=== PATIENT | female | born 1960 | race Caucasian/White ===

== ENCOUNTER → 2018-03-21 | Outpatient (CLI) | payer MEDICAID ==
[2018-03-21 14:17] LABS: BASO # 0.1 10^3/uL (0.0-0.2); BASO % 0.7 % (0.0-1.0); EOS # 0.1 10^3/uL (0.0-0.50); EOS % 1.2 % (0.0-3.0); HEMATOCRIT 46.1 % (36.0-47.0); HEMOGLOBIN 15.5 g/dl (12.0-15.5); IMMATURE GRANULOCYTE % 0.3 % (0-3.0); LYMPH # 2.5 10^3/uL (1.5-4.5); LYMPH % 34.3 % (24.0-44.0); MEAN CORPUSCULAR HEMOGLOBIN 31.4 pg (27.0-33.0); MEAN CORPUSCULAR HGB CONC 33.6 g/dl (32.0-36.5); MEAN CORPUSCULAR VOLUME 93.5 fl (80.0-96.0); MONO # 0.5 10^3/uL (0.0-0.8); MONO % 7.3 % (0.0-5.0); NEUTROPHILS # 4.2 10^3/uL (1.8-7.7); NEUTROPHILS % 56.2 % (36.0-66.0); PLATELET COUNT, AUTOMATED 259 10^3/uL (150-450); RED BLOOD COUNT 4.93 10^6/uL (4.00-5.40); RED CELL DISTRIBUTION WIDTH 12.9 % (11.5-14.5); WHITE BLOOD COUNT 7.4 10^3/uL (4.0-10.0)
[2018-03-21 14:22] LABS: ALBUMIN/GLOBULIN RATIO 1.25 (1.00-1.93); ALKALINE PHOSPHATASE 104 U/L (45-117); ALT/SGPT 26 U/L (12-78); ANION GAP 8 MEQ/L (8-16); AST/SGOT 17 U/L (7-37); BILIRUBIN,TOTAL 0.5 MG/DL (0.2-1.0); BLOOD UREA NITROGEN 13 MG/DL (7-18); CALCIUM LEVEL 9.2 MG/DL (8.5-10.1); CARBON DIOXIDE LEVEL 27 MEQ/L (21-32); CHLORIDE LEVEL 106 MEQ/L (98-107); CHOLESTEROL LEVEL 164 MG/DL (<200); CHOLESTEROL RISK RATIO 3.416 (<5); CREATININE FOR GFR 0.83 MG/DL (0.55-1.30); FREE T4 0.99 NG/DL (0.76-1.46); GLOMERULAR FILTRATION RATE > 60.0 (>51); GLUCOSE, FASTING 87 MG/DL (70-100); HDL CHOLESTEROL 48 MG/DL (>40); LDL CHOLESTEROL 89 MG/DL (<100); NON-HDL-C 116 MG/DL; POTASSIUM SERUM 4.7 MEQ/L (3.5-5.1); SODIUM LEVEL 141 MEQ/L (136-145); TOTAL 25(OH) VITAMIN D 36.1 NG/ML (30.0-100.0); TOTAL PROTEIN 7.2 GM/DL (6.4-8.2); TRIGLYCERIDES LEVEL 133 MG/DL (<150)
== END ==
LOC: M WUC 08:46
DX: R53.83 Other fatigue (principal); E78.2 Mixed hyperlipidemia; I10 Essential (primary) hypertension
CPT/HCPCS: 84443

== ENCOUNTER → 2018-11-12 | Outpatient (CLI) | payer OTHER ==
[2018-11-12 12:59] LABS: BASO % 0.4 % (0.0-1.0); EOS # 0.3 10^3/uL (0.0-0.50); EOS % 3.1 % (0.0-3.0); HEMATOCRIT 48.2 % (36.0-47.0); HEMOGLOBIN 16.1 g/dl (12.0-15.5); LYMPH # 2.4 10^3/uL (1.5-4.5); LYMPH % 24.3 % (24.0-44.0); MEAN CORPUSCULAR HGB CONC 33.4 g/dl (32.0-36.5); MEAN CORPUSCULAR VOLUME 92.9 fl (80.0-96.0); MONO # 0.7 10^3/uL (0.0-0.8); MONO % 7.1 % (0.0-5.0); NEUTROPHILS # 6.5 10^3/uL (1.8-7.7); NEUTROPHILS % 64.7 % (36.0-66.0); PLATELET COUNT, AUTOMATED 255 10^3/uL (150-450); RED BLOOD COUNT 5.19 10^6/uL (4.00-5.40)
[2018-11-12 13:29] LABS: ALT/SGPT 23 U/L (12-78); BILIRUBIN,TOTAL 0.4 MG/DL (0.2-1.0); BLOOD UREA NITROGEN 11 MG/DL (7-18); CALCIUM LEVEL 9.5 MG/DL (8.5-10.1); CARBON DIOXIDE LEVEL 27 MEQ/L (21-32); CHLORIDE LEVEL 104 MEQ/L (98-107); CHOLESTEROL LEVEL 161 MG/DL (<200); CHOLESTEROL RISK RATIO 3.037 (<5); CREATININE FOR GFR 0.64 MG/DL (0.55-1.30); GLOMERULAR FILTRATION RATE > 60.0 (>51); GLUCOSE, FASTING 101 MG/DL (70-100); HDL CHOLESTEROL 53 MG/DL (>40); LDL CHOLESTEROL 81 MG/DL (<100); NON-HDL-C 108 MG/DL; POTASSIUM SERUM 4.3 MEQ/L (3.5-5.1); SODIUM LEVEL 136 MEQ/L (136-145); TOTAL PROTEIN 7.5 GM/DL (6.4-8.2); TRIGLYCERIDES LEVEL 134 MG/DL (<150)
== END ==
LOC: M WUC 08:22
PROVIDERS: ATTEND Physician Assistant Medical
DX: R53.83 Other fatigue (principal); I10 Essential (primary) hypertension; E78.2 Mixed hyperlipidemia

== ENCOUNTER → 2019-06-05 | Outpatient (CLI) | payer BC ==
[~2019-06-05] MED LIST: ATOR40TA75 PO; LOSA50TA5 PO
--- NOTE | 2019-06-05 14:43 | REP ---
Digital diagnostic bilateral mammography with CAD, 3-D tomography, and focused right breast sonography: History: The patient reports finding a lump in the right breast the size of a walnut 1 week ago. The patient is status post augmentation. No comparison images are available at this juncture. Mammographic findings: A skin marker is affixed to the skin at the site of the palpable lump and routine as well as magnified focal spot diagnostic images are acquired. Routine implant included and implant displaced views of both breasts are obtained as well. Implant margins are smooth bilaterally. Retropectoral silicone implants appear to be present. The breast parenchyma generally is heterogeneously dense in a pattern which can inhibit the sensitivity of mammography. The left breast is mammographically unremarkable. On the right, at the site of the palpable lump, however, there is a spiculated, multilobulated soft tissue mass 3.1 cm in greatest diameter. This is confirmed on diagnostic images and is felt to be suspicious. The remainder of the right breast parenchyma is unremarkable. No definite skin change. No microcalcification. Sonographic findings: Focused right breast scanning at the site of the palpable lump at approximate 8 o'clock demonstrates a spiculated irregular very hypoechoic mass measuring 3.3 x 2.7 x 1.8 cm located 4.2 cm from the nipple. The lesion has its long axis parallel to the skin. Its margins are annular and irregular. Impression: BIRADS 5: BI-RADS/ACR category 5 mammogram. Highly Suggestive of Malignancy - appropriate action should be taken. BIRADS category 5 highly suspicious right breast imaging. The palpable lump corresponds to a 3.3 cm spiculated soft tissue mass. Ultrasound guided needle biopsy of the mass is recommended. This mammogram was interpreted with the aid of an FDA-approved computer-aided detection system. The patient states that she/he has not had a clinical breast exam in over a year. This patient's estimated Tyrer-Cuzick lifetime risk assessment for the breast cancer is 7.0 %. The patient letter being requested is m4 dense . Electronically Signed by Edi Ronquillo MD 06/05/2019 06:30 P
== END ==
LOC: M RAD 10:57
PROVIDERS: ATTEND Physician Assistant Medical
DX: N63.10 Unspecified lump in the right breast, unspecified quadrant (principal)
CPT/HCPCS: 76642; 77066; G0279

== ENCOUNTER → 2019-06-09 | Outpatient (CLI) | payer BC ==
[~2019-06-09] MED LIST changes: +LIDOCAINE 1% MDV 20ML VIAL As Ordered ONE
[2019-06-09 13:33] VITALS: BP 174/96
--- NOTE | 2019-06-09 15:18 | REP ---
DIGITAL DIAGNOSTIC UNILATERAL RIGHT BREAST MAMMOGRAPHY WITH CAD: TWO VIEWS. HISTORY: Marker clip placement views. The patient status post ultrasound-guided needle biopsy of right breast mass. Comparison mammography, June 05, 2019. MAMMOGRAPHIC FINDINGS: Craniocaudal and true mediolateral views of the right breast demonstrate the sonographically-placed needle biopsy marker clip centrally located in the irregular mass in the right breast inferolaterally. IMPRESSION: Marker clip in good position. This mammogram was interpreted with the aid of an FDA-approved computer-aided detection system. Electronically Signed by dEi Ronquillo MD 06/09/2019 06:56 P
--- NOTE | 2019-06-09 19:06 | REP ---
ULTRASOUND GUIDED RIGHT BREAST BIOPSY The procedure was performed under the direct supervision of Dr. Ronquillo The patient has a history of a spiculated irregular very hypoechoic mass measuring 3.3 x 2.7 x 1.8 cm in the 8 o'clock position of the right breast seen on a previous ultrasound dated 06/05/2019. The risks and benefits of the procedure were explained to the patient and informed consent was obtained. The right breast nodule was localized using ultrasound guidance. The skin was prepped and draped in a sterile fashion. 1% Xylocaine was used as a local anesthetic. Using ultrasound guidance a 14 gauge coaxial needle biopsy system was inserted and six core biopsy samples were obtained. A marker clip was placed at the biopsy site. The patient tolerated the procedure well and there were no immediate complications. After the appropriate amount of monitored convalescence the patient was discharged from the department. Electronically Signed by FLEX Shaw 06/09/2019 04:15 P Electronically Signed by Edi Ronquillo MD 06/09/2019 06:56 P
== END ==
LOC: M IRPRO 11:47
PROVIDERS: ATTEND Physician Assistant Medical
DX: C50.911 Malignant neoplasm of unspecified site of right female breast (principal)
CPT/HCPCS: 19083; 77065; 88305; G0279

== ENCOUNTER → 2019-07-01 | Outpatient (CLI) | payer BC ==
[~2019-07-01] MED LIST changes: -LIDOCAINE 1% MDV 20ML VIAL As Ordered ONE
== END ==
LOC: M PLALAB 08:24
PROVIDERS: ATTEND Surgery
DX: C50.511 Malignant neoplasm of lower-outer quadrant of right female breast (principal)

== ENCOUNTER → 2019-07-01 | Outpatient (CLI) | payer BC ==
[~2019-07-01] MED LIST changes: +PROHANCE 279.3MG/ML 15ML VIAL (A9576) As Ordered ONE; +PROHANCE 279.3MG/ML 5ML VIAL (A9576) As Ordered ONE
--- NOTE | 2019-07-01 11:04 | REP ---
PA and lateral chest: There are no comparisons. The lung ferrer are clear. The cardiac size is normal. The alexi, mediastinum, and skeletal structures are unremarkable. Impression: Negative PA and lateral chest. Electronically Signed by Wilton Matute MD 07/01/2019 10:56 A
--- NOTE | 2019-07-01 14:29 | REP ---
Bilateral breast MRI study without and with IV gadolinium: History: Malignant neoplasm right breast. The patient status post ultrasound-guided needle biopsy procedure June 09, 2019. Comparison mammography June 09, 2019. Technique: Three Melly MRI imaging was performed with a dedicated breast coil. Axial, coronal, and sagittal T1 and T2-weighted scans were obtained with and without fat saturation in the usual fashion. The study includes dynamically acquired post gadolinium enhanced imaging subtraction imaging. Maximal intensity projection and multiplanar re-formation imaging is included as well. The study was interpreted with the aid of VeryLastRoomD, an FDA approved computer-aided detection (CAD) software program, on a dedicated breast MRI work station. The gadolinium enhancement dose is 16 mL of intravenous ProHance. Findings: There are intact bilateral subpectoral silicone augmentation implants. There is no evidence of breast cystic change or enlarged lymph node in either axilla. The biopsy-proven malignant mass in the right breast is seen. This demonstrates irregular margins spiculation and heterogeneous enhancement. It is located in the inferolateral quadrant of the right breast middle third. It measures 3.4 x 3.0 x 2.2 cm. A needle biopsy marker clip is seen within this malignant mass. This demonstrates a heterogeneous mixed pattern of contrast kinetics with predominately plateau with and/or washout characteristics. There is hyperemia with prominent vasculature in the right breast associated with this lesion. There is no other abnormal morphologic change in either breast on pre and postcontrast high-resolution T1 and T2-weighted scans. No other suspicious focus of enhancement and/or washout is seen on dynamically acquired study in either breast. Impression: BIRADS category 6 known right breast malignancy. 3.4 cm mass in the inferolateral quadrant of the right breast. No other suspicious abnormality. Bilateral augmentation implants. Electronically Signed by Edi Ronquillo MD 07/01/2019 06:56 P
== END ==
LOC: M RAD 08:45
PROVIDERS: ATTEND Physician Assistant Medical
DX: Z01.818 Encounter for other preprocedural examination (principal); C50.911 Malignant neoplasm of unspecified site of right female breast; Z98.82 Breast implant status
CPT/HCPCS: 71046; A9576; C8908

== ENCOUNTER → 2019-07-01 | Outpatient (CLI) | payer BC ==
[~2019-07-01] MED LIST changes: -PROHANCE 279.3MG/ML 15ML VIAL (A9576) As Ordered ONE; -PROHANCE 279.3MG/ML 5ML VIAL (A9576) As Ordered ONE
--- NOTE | 2019-07-02 05:06 | REP ---
Clinical: Breast cancer. Technique: Real time garza scale and color evaluation of the right axillary region with linear high frequency transducer. Findings: Axillary lymph nodes are identified measuring up to 21 x 5 x 6 mm, 12 x 7 x 12 mm, and 7 x 8 x 11 mm. Impression: Few mildly prominent right axillary lymph nodes.
== END ==
LOC: M WHC 07:58
PROVIDERS: ATTEND Surgery
DX: C50.511 Malignant neoplasm of lower-outer quadrant of right female breast (principal); R59.0 Localized enlarged lymph nodes

== ENCOUNTER → 2019-07-11 | Outpatient (CLI) | payer BC ==
[~2019-07-11] MED LIST changes: +BUPR15TASR PO
--- NOTE | 2019-07-12 10:57 | MEDONC ---
MEDICAL ONCOLOGY OFFICE VISIT: DATE: 07/11/2019 Mrs. Rose is a 58-year-old woman presented with a palpable lump in the right breast. She felt the mass in early May. She underwent bilateral mammography and right breast ultrasound on June 05, 2019. Mammogram showed retropectoral silicone implant bilaterally. The breast parenchyma appeared heterogeneously dense. Left breast is mammographically unremarkable. The right breast at the site of the palpable lump, there is a spiculated multilobulated soft tissue mass 3.1 cm in greatest dimension. Ultrasound of the right breast showed the spiculated irregular very hyper or hypoechoic mass measuring 3.3 x 2.7 x 1.8 cm located at 8-o'clock, 4.2 cm from the nipple. Ultrasound guided biopsy was done on June 09, 2019, pathology showed invasive ductal carcinoma, grade III, ER positive 20%, MA negative, HER2 negative. PAST MEDICAL HISTORY: Significant for COPD, hypertension, hyperlipidemia. PAST SURGICAL HISTORY: Includes tonsillectomy, wisdom tooth extractions, carpal tunnel release, tubal ligation and breast implant 10 years ago. CURRENT MEDICATIONS: - atorvastatin 40 mg once daily - ibuprofen 600 mg p.o. - losartan - potassium/HCTZ 50/12/5 mg one orally ALLERGIES: No known drug allergies. OB-LOAN ASSISTANT HISTORY: Menarche at 13 years of age. She is 3, para 3, LMP was 10 years ago. FAMILY HISTORY: Father COPD, hypertension, brain aneurysm, and stroke. Mother hypertension, heart attack. There is no family history of cancer. SOCIAL HISTORY: She is a smoker one pack a day. No alcohol abuse. REVIEW OF SYSTEMS: General and constitutional: She denies fever, chills, recent weight changes or fatigue. HEENT: Denies visual problems. Respiratory/pulmonary: Denies shortness of breath, wheeze. Cardiovascular: Denies palpitations, chest pain. Gastrointestinal: Denies nausea, vomiting, abdominal pain, diarrhea or constipation. Genitourinary: Denies urinary frequency, dysuria or hematuria. Musculoskeletal: Denies any bone pain, arthritis. Psychiatric and emotional: Denies anxiety or depression. ECOG performance status: 0. PHYSICAL EXAMINATION: General: Examination revealed well-developed and nourished female who does not appear to be in apparent distress. Patient was alert, oriented. Vital signs: Temperature 98.8, pulse 85, respirations 18, blood pressure 125/80, oxygen saturation is 94% in room air. HEENT: Normocephalic, atraumatic. Neck: Supple. There are no palpable lymphadenopathies in the neck, axilla bilaterally. Breast exam: Both breasts are same in size. There is a lump felt in the lateral side of the right breast, moderate in consistency and slightly tender on palpation. Respiratory: Clear to auscultation. Abdomen: Soft, nontender, nondistended without any palpable mass or organomegaly. Rectal exam: Not performed. Skin: There are no skin lesions. Extremities: No swelling, cyanosis. Neurological: Strength and sensation grossly intact. Psychiatric: Mood and affect appropriate. PATHOLOGICAL FINDINGS: As mentioned in HPI. RADIOLOGICAL FINDINGS: As mentioned in HPI. ICD 10 code: D50.511 STAGING: Clinical stage T2N0M0, ER positive 20%, MA negative, HER2 negative. ASSESSMENT AND RECOMMENDATIONS: Mrs. Rose is a 58-year-old woman presented with a palpable lump in the right breast. She had a mammography and ultrasound which showed a spiculated mass in the right breast corresponding to palpable abnormality. Ultrasound guided biopsy was performed on June 09, 2019 which showed invasive ductal carcinoma, grade III, ER 20% positive, MA negative, HER2 negative. I discussed the nature of the disease and treatment options. She is scheduled for surgery and adjuvant treatment will depends on surgical findings. Based on molecular findings , she is mostlikely a candidate for chemotherapy unless Oncotype DX, if it is recommended and shows low recurrence score.. In cse she is candidate for chemotherappy, radiation therapy will follow at the completion of chemotherapy. I have discussed procedures and possible side effects associated with the radiation therapy and I have given her chance of questions and concerns , they were answered to her satisfaction. DD: Cyn Pressley MD 07/11/2019 02:46 P DT: kellie 07/12/2019 10:04 A CC: HERB
== END ==
LOC: M ONCR 13:55
PROVIDERS: ATTEND Radiology Radiation Oncology
DX: C50.911 Malignant neoplasm of unspecified site of right female breast (principal)

== ENCOUNTER 2019-08-05 06:33 | Observation (INO) | payer BC ==
[2019-08-05] VITALS (7 sets, daily range): BP systolic 132–156; BP diastolic 68–81; O2SAT 96
[~2019-08-05] VITALS: Ht 167.6 cm; Wt 83.9 kg
[~2019-08-05 06:33] MED LIST changes: +HEPARIN SOD (PORCINE) 5000UNITS/ML VIAL (J1644 PER 1000UNITS) SQ ONE; +LIDOCAINE 5% (LIDODERM) PATCH TD ONE; +LR 1,000 ML IV ONE; +ceFAZolin SOD 2 GM in IV 1 EA IV ONE
[2019-08-05] MEDS ORDERED: dexameTHASONE 4 MG/ML 1ML VIAL (J1100 PER 1MG) As Ordered ONE (08:52)
[2019-08-05] MEDS ORDERED: ROCURONIUM BROMIDE 50 MG/5 ML VIAL As Ordered ONE ×2 (08:52→14:16)
[2019-08-05] MEDS ORDERED: MIDAZOLAM INJ 2MG/2ML VIAL (J2250 PER 1MG) As Ordered ONE (08:52)
[2019-08-05] MEDS ORDERED: ONDANSETRON 4MG/2ML VIAL As Ordered ONE (08:52)
[2019-08-05] MEDS ORDERED: LIDOCAINE 2% 100MG/5ML SDV (FOR ANES.) As Ordered ONE (08:52)
[2019-08-05] MEDS ORDERED: fentaNYL 250 MCG/5 ML INJECTION (J3010) As Ordered ONE (08:52)
[2019-08-05] MEDS ORDERED: propofoL 200 MG/20 ML VIAL As Ordered ONE ×2 (08:52→14:41)
[2019-08-05] MEDS ORDERED: SCOPOLAMINE 1MG TRANSDERMAL PATCH TOP ONE (10:00)
[2019-08-05] MEDS ORDERED: BUPIVACAINE HCL 0.25% 30ML VIAL As Ordered ONE (12:06)
[2019-08-05] MEDS ORDERED: METHYLENE BLUE 0.5% (5MG/ML) 10 ML AMP (PROVAYBLUE)(Q9968 PER 1MG) As Ordered ONE (12:06)
[2019-08-05] MEDS ORDERED: LIDOCAINE 1% SDV 30ML VIAL As Ordered ONE (12:06)
[2019-08-05] MEDS ORDERED: ePHEDrine SULFATE 25 MG/5 ML(5MG/ML) SYRINGE As Ordered ONE ×2 (12:45→13:43)
--- NOTE | 2019-08-05 13:00 | REP ---
Right Breast Lymphoscintigraphy The procedure was performed by FLEX Tyson, under the direct supervision of Dr. Ronquillo. The risks and benefits of the procedure were explained to the patient and informed consent was obtained both verbally and written. Directly prior to the start of the procedure, a formal timeout was completed in the procedure room. Using topical anesthetic and sterile technique 1.021 mCi of technetium 99m filtered sulfur colloid was injected subdermally in eight fractionated periareolar injections. Images obtained 1 hour after injection show brea uptake. Impression: 1. There is brea uptake. Reviewed by FLEX Conrad 08/05/2019 11:11 A Electronically Signed by Edi Ronquillo MD 08/05/2019 12:50 P
[2019-08-05] MEDS ORDERED: BUPIVACAINE LIPOSOME/PF 1.3% 20ML VIAL (13.3MG/ML)(EXPAREL)(C9290 PER1MG) As Ordered ONE (13:30)
[2019-08-05] MEDS ORDERED: ACETAMINOPHEN 1000MG 100ML IV BTL (OFIRMEV) (J0131 PER 10MG) As Ordered ONE (13:52)
[2019-08-05] MEDS ORDERED: HYDROmorphone HCL 2 MG/ML 1ML VIAL (J1170) As Ordered ONE (14:01)
[2019-08-05] MEDS ORDERED: GENTAMICIN SULF 80MG/2ML VIAL As Ordered ONE (14:14)
[2019-08-05] MEDS ORDERED: KETOROLAC 60 MG/2 ML VIAL As Ordered ONE (14:50)
[2019-08-05] MEDS ORDERED: SUGAMMADEX SODIUM 500 MG/5 ML VIAL (BRIDION) As Ordered ONE (14:50)
[2019-08-05] MEDS: LR 1,000 ML IV SCH (15:18)
[2019-08-05] MEDS ORDERED: ACETAMINOPHEN TAB 650MG DOSE (2X325MG) PO PRN (15:30)
[2019-08-05] MEDS ORDERED: ONDANSETRON 4MG/2ML VIAL IV PRN ×2 (15:30→16:00)
[2019-08-05] MEDS ORDERED: PERCOCET 5MG/325MG TAB PO PRN (15:30)
[2019-08-05] MEDS ORDERED: KETOROLAC TROMETHAMINE 10 MG TAB PO PRN (15:30)
[2019-08-05] MEDS ORDERED: MORPHINE 4 MG/ML 1ML VIAL/SYRINGE (J2270) IV PRN (15:30)
--- NOTE | 2019-08-05 15:30 | POST-OPPD ---
Postoperative Procedure Note Date Of Procedure: Aug 05, 2019 PREOPERATIVE DIAGNOSIS: Right breast acquired deficits s/p lumpectomy POSTOPERATIVE DIAGNOSIS: same FINDINGS: Large defect right breast s/p lumpectomy PROCEDURE: Removal of implant, reconstruction with local tissue rearrangement and social media editor placement. SURGEON: Dr Villaseñor INSURANCE VERIFY REP: Dr Hartmann ANESTHESIA: General SPECIMENS: Implant: Allergan Style 20, 450cc smooth gel. Lot [id number]. Intact. ESTIMATED BLOOD LOSS: 50cc total procedure REPLACED: none DRAINS: none COMPLICATIONS: none POSTOPERATIVE CONDITION: stable Dict: [id number] ADRIA VILLASEÑOR DO Aug 05, 2019 15:29
[2019-08-05] MEDS ORDERED: HYDROMORPHONE HCL 0.5 MG/ 0.5 ML SYRINGE (J1170 PER 1) As Ordered ONE (15:48)
[2019-08-05] MEDS: HYDROMORPHONE HCL 0.5 MG/ 0.5 ML SYRINGE (J1170 PER 1) IV PRN ×2 (15:52→16:07)
[2019-08-05] MEDS ORDERED: oxyCODONE 5MG TAB PO PRN (16:00)
[2019-08-05] MEDS ORDERED: fentaNYL 100 MCG/2 ML INJECTION (J3010) IV PRN (16:00)
[2019-08-05] MEDS ORDERED: LR 1,000 ML IV SCH (16:00)
--- NOTE | 2019-08-05 17:04 | REP ---
Specimen radiography right breast: Single view. History: History of right breast malignancy. Comparison mammography June 05, 2019. Comparison sonography June 09, 2019. Findings: Specimen radiography demonstrates the spiculated mass centrally located within the specimen approximately 3.7 cm in greatest diameter. The HydroMARK clip is seen centrally located in the mass. There are no visible microcalcifications. There were no visible microcalcifications in vivo on comparison mammography. Impression: Specimen radiography demonstrates the spiculated mass centrally located in the specimen. Electronically Signed by Edi Ronquillo MD 08/05/2019 05:44 P
[2019-08-06 02:00] VITALS: BP 104/53
[2019-08-06] MEDS: LR 1,000 ML IV SCH (05:45)
[2019-08-06 06:00] VITALS: BP 122/68
[2019-08-06] MEDS ORDERED: OXYC1TAB23 PO (07:39)
--- NOTE | 2019-08-06 07:47 | IPNPDOC ---
Subjective General Date Seen: Aug 06, 2019 Subject Chief Complaint/History BREAST SURGERY NOTE The patient is a 58-year-old female admitted with a reason for visit of Right Br east Cancer, Malignant Neoplasm Right, s/p R lumpectomy with SLNBx, right implant removal and replacement with tissue stock broker supervisor POD1 Patent is doing well postop. tolerates diet, pain controlled, ambulates Current Medications Current Medications Current Medications Medications (Trade) Dose Ordered Sig/Noam Route PRN Reason Start Time Stop Time Status Last Admin Dose Admin Acetaminophen (Tylenol Tab) 650 mg Q6H PRN PO MILD PAIN (PS 1-4) 08/05/19 15:30 Fentanyl Citrate (Sublimaze) 25 mcg Q5MP PRN IV PAIN LEVEL 5-10 08/05/19 16:00 08/05/19 17:00 DC Hydromorphone HCl (Dilaudid) 0.2 mg Q5MP PRN IV PAIN LEVEL 4-7 08/05/19 16:00 08/05/19 17:00 DC 08/05/19 16:07 Ketorolac Tromethamine (ToRADol) 10 mg Q6HP PRN PO MODERATE PAIN (PS 5-7) 08/05/19 15:30 08/10/19 15:29 Lactated Ringer's 1,000 ml @ 80 mls/hr [id number] IV 08/05/19 15:18 08/06/19 05:45 Lactated Ringer's 1,000 ml @ 100 mls/hr Q10H IV 08/05/19 16:00 08/05/19 17:00 DC Morphine Sulfate (Morphine Sulfate Inj) 4 mg Q4HP PRN IV BREASK THROUGH PAIN 08/05/19 15:30 Ondansetron HCl (ZOFRAN INJection) 4 mg Q4H PRN IV NAUSEA OR VOMITING 08/05/19 15:30 Ondansetron HCl (ZOFRAN INJection) 4 mg Q4HP PRN IV NAUSEA OR VOMITING 08/05/19 16:00 08/05/19 17:00 DC Oxycodone HCl (Roxicodone, Oxyir) 5 mg ASDIRECTED PRN PO PAIN LEVEL 1-4 08/05/19 16:00 08/05/19 17:00 DC Oxycodone/ Acetaminophen (Percocet 5mg/ 325mg Tablet) 1 tab Q4HP PRN PO SEVERE PAIN (PS 8-10) 08/05/19 15:30 08/05/19 21:46 Allergies Coded Allergies: No Known Allergies (Unverified , 07/24/19) Objective Physical Examination Examination GENERAL APPEARANCE:Patient seen, awake, alert, and oriented. Comfortable, in no acute distress. SKIN: Warm and moist. BREAST: Right breast incision is well approximated, there is some bruising over the area where tumor was. There is o erythema. Axillary incision is covered with gauze LUNGS: breathing comfortably on room air EXTREMITIES: ambulating without issues Vital Signs Vital Signs Date Time Temp Pulse Resp B/P (MAP) Pulse Ox O2 Delivery O2 Flow Rate FiO2 08/06/19 06:00 97.2 80 18 122/68 (86) 95 Nasal Cannula 2.0 I&Os I&O- Last 24 Hours up to 6 AM 08/06/19 05:59 Intake Total 3100 ml Output Total 0 ml Balance 3100 ml Impression 58 y oF w R breast ca, s/p R lumpectomy and R SLNBx and removal of R implant with placement or R tissue stock broker supervisor POD1 - doing well postop - RX sent to pharmacy - f/u appts made with plastics and breast surgery - d/c orders and instructions placed - pt is ready for d/c Plan / VTE VTE Prophylaxis Ordered?: Yes VTE Exclusion Pharmacological: Bleeding Risk MARK AN DO Aug 06, 2019 07:47
[2019-08-06] MEDS ORDERED: FLUBLOK(EGG FREE)(QUAD)INFLUENZA VACC 0.5ML SYRINGE (90682)18YRS&OLDER IM ONE (09:00)
--- NOTE | 2019-08-06 11:46 | IPNPDOC ---
Subjective General Date Seen: Aug 06, 2019 Subject Chief Complaint/History The patient is a 58-year-old female admitted with a reason for visit of Right Breast Cancer, Malignant Neoplasm Right..... S/p right breast lumpectomy with immediate reconstruction POD 1. Doing well. Pain controlled. No complains. Current Medications Current Medications Current Medications Medications (Trade) Dose Ordered Sig/Noam Route PRN Reason Start Time Stop Time Status Last Admin Dose Admin Acetaminophen (Tylenol Tab) 650 mg Q6H PRN PO MILD PAIN (PS 1-4) 08/05/19 15:30 08/06/19 09:01 DC 08/06/19 08:50 Fentanyl Citrate (Sublimaze) 25 mcg Q5MP PRN IV PAIN LEVEL 5-10 08/05/19 16:00 08/05/19 17:00 DC Hydromorphone HCl (Dilaudid) 0.2 mg Q5MP PRN IV PAIN LEVEL 4-7 08/05/19 16:00 08/05/19 17:00 DC 08/05/19 16:07 Ketorolac Tromethamine (ToRADol) 10 mg Q6HP PRN PO MODERATE PAIN (PS 5-7) 08/05/19 15:30 08/06/19 09:01 DC Lactated Ringer's 1,000 ml @ 80 mls/hr [id number] IV 08/05/19 15:18 08/06/19 09:01 DC 08/06/19 05:45 Lactated Ringer's 1,000 ml @ 100 mls/hr Q10H IV 08/05/19 16:00 08/05/19 17:00 DC Morphine Sulfate (Morphine Sulfate Inj) 4 mg Q4HP PRN IV BREASK THROUGH PAIN 08/05/19 15:30 08/06/19 09:01 DC Ondansetron HCl (ZOFRAN INJection) 4 mg Q4H PRN IV NAUSEA OR VOMITING 08/05/19 15:30 08/06/19 09:01 DC Ondansetron HCl (ZOFRAN INJection) 4 mg Q4HP PRN IV NAUSEA OR VOMITING 08/05/19 16:00 08/05/19 17:00 DC Oxycodone HCl (Roxicodone, Oxyir) 5 mg ASDIRECTED PRN PO PAIN LEVEL 1-4 08/05/19 16:00 08/05/19 17:00 DC Oxycodone/ Acetaminophen (Percocet 5mg/ 325mg Tablet) 1 tab Q4HP PRN PO SEVERE PAIN (PS 8-10) 08/05/19 15:30 08/06/19 09:01 DC 08/05/19 21:46 Allergies Coded Allergies: No Known Allergies (Unverified , 07/24/19) Objective Physical Examination Examination GENERAL APPEARANCE:Patient seen, laying in bed, awake, alert, and oriented. Comfortable, in no acute distress. SKIN: Warm and moist. BREAST: Right and left soft, non-tender incisions intact. NAC viable. Post op ecchymosis mild, no expanding hematoma. LUNGS: Clear to auscultation bilaterally. No wheezing appreciated. HEART: No chest wall abnormalities. Regular rate and rhythm with no murmurs appreciated. ABDOMEN: Abdomen is soft, non-tender, non-distended. EXTREMITIES: No edema identified. No calf tenderness. Vital Signs Vital Signs Date Time Temp Pulse Resp B/P (MAP) Pulse Ox O2 Delivery O2 Flow Rate FiO2 08/06/19 06:00 97.2 80 18 122/68 (86) 95 Nasal Cannula 2.0 I&Os I&O- Last 24 Hours up to 6 AM 08/06/19 06:00 Intake Total 3400 ml Output Total 0 ml Balance 3400 ml Impression Healing well. Stable for discharge. Keep support bra on. F/up Plastic surgery Next week. Plan / VTE VTE Prophylaxis Ordered?: Yes VTE Exclusion Pharmacological: Bleeding Risk ADRIA VILLASEÑOR DO Aug 06, 2019 11:46
--- NOTE | 2019-08-07 20:43 | ROOPDOC ---
[facility] Report Of Operation Report of Operation DATE OF PROCEDURE: 08/05/19 PREPROCEDURE DIAGNOSES: Right breast cancer POSTPROCEDURE DIAGNOSES: Right breast cancer PROCEDURE: Right breast lumpectomy with right implant removal and placement of tissue community development coordinator with re-inflation, and right sentinel lymph node biopsy SURGEON: Mark Hartmann AUTOMOTIVE QUALITY MANAGER: Dorys Sidhu ANESTHESIA: General ESTIMATED BLOOD LOSS: Approximately 5 mL. COMPLICATIONS: None REMARKS: Spiculated mass seen in the middle of lumpectomy specimen. The marking clip is seen in the middle of the mass. DESCRIPTION OF PROCEDURE: INDICATIONS: Ms. Trejo is a 58 year-old woman with bilateral breast augmentation who was recently found to have 3.3 cm right breast cancer. She underwent diagnostic workup and no additional lesions were found. We have discussed surgical options including breast conserving surgery and mastectomy combined with sentinel lymph node biopsy. Patient opted for right breast conserving surgery and sentinel lymph node biopsy. Due to the fact that the tumor was close to the skin and to the implant and since patient will need radiation therapy after surgery. She was also referred to plastic surgery for evaluation of implant removal and tissue community development coordinator placement at the time of surgery. Risks and possible complications of surgical procedure including bleeding, infection and injury to surrounding structures were explained to the patient and she wished to proceed. Consent was signed. My initials were placed on the operative site (right). Since patient has an active diagnosis of cancer, subcutaneous injection of 5000 units of heparin was done in Preop. Injection of radioactive tracer was done in radiology department preoperatively. Imaging were reviewed post wire placement and showed uptake of traced in the right axilla. DETAILS: Patient was taken to the operating room and placed supine on the operating room table. A sign in was called stating patients name, date of and the procedure to be done. Preoperative antibiotics were infused. Smooth induction of general anesthesia was done. Patients hands were extended on arm rests and placed in the protective foam. Care was taken not to over extend the arms. Patients right breast and axilla were prepped and draped in the usual fashion. Appropriate time out was done and patients name, date of , and the procedure to be done were confirmed. Intraop ultrasound was used to localize the mass in the right breast. The location of the mass was marked on the skin. Procedure was started with sentinel lymph node biopsy. Neoprobe was used to locate area of maximum intensity of the signal. Local anesthetic using Exparel was injected at the lower axillary hair area. An incision was made with scalpel number 15 at the inferior aspect of axillary hair line in the right axilla where the maximum signal was identified. The sharp and blunt dissection was continued through the subcutaneous adipose tissue. Clavipectoral fascia was opened. Neoprobe was used to guide the dissection. Two sentinel lymph nodes were identified and excised. The ex-vivo 10 second count for the first sentinel lymph node was 05449 and for the second node was 2821. The specimens were labeled with patients name and demarcation right breast sentinel lymph node#1, #2 accordingly. The specimens were then sent to pathology for evaluation. The 10 second count of the background was 86. Doctor Drummond assistance was critical for achieving adequate hemostasis. Additional local anesthetic was injected into surrounding tissues. Wound was irrigated. Clavipectoral fascia was closed with 3-0 Vicryl interrupted suture. Dermal layer was closed with 3-0 Monocryl and skin was closed with 4-0 Monocryl. Steri strips were placed over the incision. Next, our attention was turned toward the right breast. Doctor Sidhu opened the previous inframammary scar and raised the subcutaneous flaps to allow easier access to the tumor. Ultrasound with the Linear Hockey Stick Transducer was used to confirm the location of the mass. The ultrasound Linear Hockey Stick Transducer to allow me constant assessment of the distance of the lumpectomy margin from the cancer. I was also able to identify the marker clip and assured that it stayed in the center of dissected lumpectomy. Dissection was carried along the dermal plane anteriorly as the mass close to skin. The medial, lateral, inferior and superior dissection was guided by the intraoperative sonography. Deep margin was taken directly off the implant capsule. Upon specimen removal from the breast, it was carefully placed on the back table and appropriate margins were marked with surgical ink using standard breast colors guide. The specimen was then placed on the grid and placed in [employer] [facility]. The image revealed the spiculated mass located in the middle of lumpectomy specimen with centrally located clip. Images were sent to PACS. The specimen was then labeled with patients name and demarcation right breast lumpectomy and sent to pathology. At this point four additional specimen margins were taken: inferior, superior, medial, and lateral. Anterior margin was at the dermal level and the posterior margin was at the level of the capsule. All new/ true margins, defined as margin farthest away from lumpectomy cavity, were marked with a black ink. Each margin was sent as a separate specimen with appropriate labeling. Adequate hemostasis was assured and doctor Drummond assistance was critical for that. Additional local anesthetic was injected into surrounding tissues. Clips were placed to mat the cavity. At this time, doctor Sidhu started her part of procedure by removing the implant and placing tissue community development coordinator which was later inflated. The breast tissue was then mobilized to help with tissue loss defect repair. Please refer to caitlin Sidhu note for details. I assisted with that part of procedure. Adequate hemostasis was assured. The skin was closed with 3-0 Monocryl. Xeroform was placed over the subcutaneous flap and covered with fluffs. Surgical bra was placed. All instrument and sponge counts were correct. Patient emerged from the anesthesia without any issues and was taken to the recovery in stable condition. MARK HARTMANN DO Aug 06, 2019 14:02
--- NOTE | 2019-08-09 08:19 | RO ---
DATE OF PROCEDURE: 08/05/2019 PREOPERATIVE DIAGNOSIS: Right breast acquired defect status post lumpectomy. POSTOPERATIVE DIAGNOSIS: Right breast acquired defect status post lumpectomy. FINDINGS: Large defect right breast status post lumpectomy. PROCEDURE: Removal of implant, reconstruction with local tissue rearrangement and insulation technician placement. ATTENDING SURGEON: Dorys Sidhu DO AUTOMOTIVE PAINT TECHNICIAN: Bing Hartmann DO ANESTHESIA: General. SPECIMENS: We have taken out an implant Allergan style 20, 450 mL smooth gel implant, lot [id number], completely intact. BLOOD LOSS: 50 mL for total procedure. No replacement. No drains. DESCRIPTION OF PROCEDURE: This is a 58-year-old female who has history of bilateral breast implants. She was concomitantly diagnosed with breast cancer on the right side, which is quite large tumor, which is scheduled in combination procedures with breast surgery, Dr. Hartmann, for lumpectomy, sentinel node dissection, as well as the implant removal and reconstruction status post large lumpectomy. All risks, benefits, and alternatives discussed with the patient in detail preoperatively, and she is ready to proceed. The first portion of the procedure for the sentinel node dissection as well as the part of the lumpectomy, Dr. Hartmann is going to dictate separately. I was assisting on that part of the procedure for the sentinel node dissection, which that incision was completely closed before we turned our attention to the breast. The breast incision was carried out by me inframammary, and sharp dissection was carried out using electrocautery and then we raised a flap, which is large mastectomy flap, which was covering the defect, which was inferolateral portion of the right breast. Dr. Hartmann took place from this area to excise the portion of lumpectomy and lumpectomy was carried out until the capsule from the implant identified. Then I opened the capsule. I removed the implant, which was completely intact, 450 smooth gel implant, Allergan style 20, and that was sent to pathology for identification. The pocket was irrigated and then she completed taking out the lumpectomy. Also, the margins were taken by Dr. Hartmann as well. Then open capsulotomy was performed. There was a very thin capsule, very good pocket, and we irrigated the pocket with irrigation with gentamicin solution. New insulation technician [address] [place] moderate profile was introduced and expanded fully to 450 mL of normal saline. The pocket was then closed with interrupted #3-0 Vicryl sutures, and then Dr. Hartmann placed clips on where the lumpectomy portion was and then tissue rearrangement with fatty tissue and breast tissue was done to pad the area of defect and closing the space. Then the skin was closed in layers with interrupted #2-0 Vicryl and #3-0 Monocryl sutures. Xeroform was applied. Breast was in good perfusion at all times. Bulky dressing and Surgi-Bra were placed. Patient was extubated in the operating room without any difficulty and transferred to recovery in stable condition. Of note, we also gave a block with 10 mL of Exparel for pain control. CELSAD
[2019-09-11] MEDS ORDERED: ONDA8TAB10 PO (09:01)
[2019-09-11] MEDS ORDERED: PROC10TA4 PO (09:01)
[2019-09-11] MEDS ORDERED: DEXA4TA PO (09:01)
== END 2019-08-06 09:00 | disposition home or self-care (01) ==
LOC: INTOOBSV 06:33 → M OR 06:33 → M MS5PR 16:35
PROVIDERS: ADMIT Surgery; ATTEND Surgery
DX: D05.11 Intraductal carcinoma in situ of right breast (principal); Z17.0 Estrogen receptor positive status [ER+]; Z98.82 Breast implant status; I10 Essential (primary) hypertension; E78.00 Pure hypercholesterolemia, unspecified; J44.9 Chronic obstructive pulmonary disease, unspecified; F17.210 Nicotine dependence, cigarettes, uncomplicated; Z79.899 Other long term (current) drug therapy
CPT/HCPCS: 19125; 19328; 19357; 36415; 38525; 76098; 78195; 86850; 86900; 86901; 88305; 88307; 90682; A9541; C1789; C9290; J0131; J0690; J1100; J1170; J1580; J1644; J1885; J2250; J2405; J3010

== ENCOUNTER → 2019-11-04 | Outpatient (CLI) | payer BC ==
[~2019-11-04] MED LIST changes: +CLAR10CA3 PO; +DEXA4TA PO; -HEPARIN SOD (PORCINE) 5000UNITS/ML VIAL (J1644 PER 1000UNITS) SQ ONE; +HYDR12.55 PO; +HYDR25TAB PO; +IBUP-1022 PO; -LIDOCAINE 5% (LIDODERM) PATCH TD ONE; -LR 1,000 ML IV ONE; +MULTCAP PO; +ONDA8TAB10 PO; +OXYC1TAB23 PO; +PROC10TA4 PO; -ceFAZolin SOD 2 GM in IV 1 EA IV ONE
--- NOTE | 2019-11-07 21:54 | RADONC ---
RADIATION ONCOLOGY CONSULTATION NOTE DATE: 11/04/2019 This is a telemedicine visit. The patient was informed of the risks including security breech, technological failure, inability to perform a comprehensive physical exam which could delay or prevent an accurate diagnosis, and potential complications from treatment decisions rendered over a telemedicine platform. The patient understands and consented to the use of telehealth services phone only. CHART NUMBER: [id number] DIAGNOSIS: Right breast cancer. STAGE: Stage IIA, T2, N0, M0, grade 3, ER positive, ND negative, HER2/casie negative, oncotype recurrence score 66. ECOG PERFORMANCE STATUS: Zero. CONSULTATION NOTE: Ms. 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 Cyn Pressley MD Since her initial visit, The patient was seen by medical oncology and has undergone chemotherapy consisting of docetaxel and cyclophosphamide. She has had three cycles thus far and is scheduled for her last cycle of chemotherapy on November 12, 2019. The patient has done well with her chemotherapy and now representing to us for further discussion of postoperative radiation therapy to her right chest wall. REVIEW OF SYSTEMS: The patient's review of systems is noncontributory. She denies nausea, vomiting, fevers, chills, night sweats, diplopia, headaches, anxiety or depression, anorexia, weight loss, visual disturbances, chest pain, urinary or bowel difficulties, bone pain, or neurological problems. PHYSICAL EXAMINATION: Physical examination was deferred at this time as per COVID-19 precautions. This was a telephone re-consultation. ASSESSMENT: I discussed with the patient in detail the potential benefits as well as possible acute and chronic sequelae of external beam radiation therapy. We discussed logistics of treatment planning, simulation and subsequent fractionated daily radiation treatments. Radiation is delivered usually 4 weeks post her chemotherapy and therefore, I am scheduling her for CT simulation of her right chest wall in early November. Physical examination will be undertaken at that time. The patient apparently has expanders in for surgical reconstruction. Thank you for allowing us to participate in the care of this very pleasant woman. We will keep you informed of any new developments as they occur. As always, warm regards. cc: DO Alee Kelly MD
== END ==
LOC: M ONCR 09:09
PROVIDERS: ATTEND Radiology Radiation Oncology
DX: C50.911 Malignant neoplasm of unspecified site of right female breast (principal)

== ENCOUNTER 2019-12-18 09:45 | Outpatient (RCR) | payer BC ==
--- NOTE | 2019-12-12 00:21 | RADONC ---
RADIATION ONCOLOGY SIMULATION NOTE DATE: 12/04/2019 CHART NUMBER: [id number] SIMULATION NOTE: Ms. Rose was taken to the CT scan for CT simulation of her right breast field. CT was accomplished without difficulty or discomfort. Radiation treatment planning is underway and radiation treatments will begin subsequently. An immobilization device was created and will be used throughout the course of treatment. It was created without difficulty or discomfort. I was physically present throughout the course of CT simulation.
[~2019-12-18 09:45] MED LIST changes: +LETR2.5T2 PO
[2020-01-22] MEDS ORDERED: TORS10TA3 PO (14:54)
[2020-04-05] MEDS ORDERED: MULTCAP PO (14:25)
== END 2019-12-26 ==
LOC: M ONCR 09:45
PROVIDERS: ATTEND Radiology Radiation Oncology
DX: C50.511 Malignant neoplasm of lower-outer quadrant of right female breast (principal)

== ENCOUNTER → 2020-02-05 | Outpatient (CLI) | payer BC ==
[~2020-02-05] MED LIST changes: +TORS10TA3 PO
--- NOTE | 2020-02-19 15:22 | DEXA ---
AP SPINE L1 - L4 1.122 -0.6 0.5 LT FEMUR TOTAL 0.916 -0.7 0.1 LT NECK 0.889 -1.1 0.1 RT FEMUR TOTAL 0.886 -1.0 -0.1 RT NECK 0.948 -0.6 0.5 TOTAL BODY TOTAL OTHER COMMENTS: Normal bone densitometry of the spine. There is low bone density of the left hip. There is low bone density of the right hip. FOLLOW-UP: Recommendation for the next bone density exam: 2 years. HERB
== END ==
LOC: M WHC 12:39
PROVIDERS: ATTEND Specialist
DX: Z85.3 Personal history of malignant neoplasm of breast (principal); M85.851 Other specified disorders of bone density and structure, right thigh; M85.852 Other specified disorders of bone density and structure, left thigh

== ENCOUNTER → 2020-04-07 | Outpatient (CLI) | payer BC | LOC: M LABSMTC 10:19 | PROVIDERS: ATTEND Anesthesiology | DX: Z01.812 Encounter for preprocedural laboratory examination (principal); Z20.828 Contact with and (suspected) exposure to other viral communicable diseases ==

== ENCOUNTER 2020-04-12 12:09 | Day surgery (SDC) | payer BC ==
[~2020-04-12] VITALS: Ht 165.1 cm; Wt 86.6 kg
[~2020-04-12 12:09] MED LIST changes: +NS 1,000 ML IV ONE
[2020-04-12] MEDS ORDERED: propofoL 200 MG/20 ML VIAL As Ordered ONE ×2 (13:37→14:04)
[2020-04-12] MEDS ORDERED: LIDOCAINE 2% 100MG/5ML SDV (FOR ANES.) As Ordered ONE (13:37)
--- NOTE | 2020-04-12 15:25 | ROOR ---
Patient Name: Simin Trejo Procedure Date: 04/12/2020 2:28 PM Date of : 1960 Age: 59 Room: [facility] Gender: Female Note Status: Finalized Procedure: Colonoscopy Indications: High risk colon cancer surveillance: Personal history of colonic polyps Providers: Freddie Rosales MD Referring MD: LO Amador Requesting Provider: Medicines: Monitored Anesthesia Care Complications: No immediate complications. Procedure: Pre-Anesthesia Assessment: - Prior to the procedure, a History and Physical was performed, and patient medications and allergies were reviewed. The patient is competent. The risks and benefits of the procedure and the sedation options and risks were discussed with the patient. All questions were answered and informed consent was obtained. Patient identification and proposed procedure were verified by the physician, the nurse and the anesthesiologist in the procedure room. Mental Status Examination: alert and oriented. Airway Examination: normal oropharyngeal airway and neck mobility. Respiratory Examination: clear to auscultation. CV Examination: normal. Prophylactic Antibiotics: The patient does not require prophylactic antibiotics. Prior Anticoagulants: The patient has taken no previous anticoagulant or antiplatelet agents. ASA Grade Assessment: II - A patient with mild systemic disease. After reviewing the risks and benefits, the patient was deemed in satisfactory condition to undergo the procedure. The anesthesia plan was to use monitored anesthesia care (MAC). Immediately prior to administration of medications, the patient was re-assessed for adequacy to receive sedatives. The heart rate, respiratory rate, oxygen saturations, blood pressure, adequacy of pulmonary ventilation, and response to care were monitored throughout the procedure. The physical status of the patient was re-assessed after the procedure. The Colonoscope was introduced through the anus and advanced to the terminal ileum, with identification of the appendiceal orifice and IC valve. The colonoscopy was performed without difficulty. The patient tolerated the procedure well. The quality of the bowel preparation was good. The terminal ileum, ileocecal valve, appendiceal orifice, and rectum were photographed. Scope insertion time was 3 minutes. Scope withdrawal time was 11 minutes. The total duration of the procedure was 16 minutes. Findings: The perianal and digital rectal examinations were normal. The terminal ileum appeared normal. Four sessile polyps were found in the recto-sigmoid colon, descending colon, transverse colon and ascending colon. The polyps were 4 to 8 mm in size. These polyps were removed with a cold snare. Resection and retrieval were complete. Verification of patient identification for the specimen was done by the physician and nurse using the patient's name, date and medical record number. Estimated blood loss was minimal. Multiple small and large-mouthed diverticula were found in the sigmoid colon. There was no evidence of diverticular bleeding. Non-bleeding external and internal hemorrhoids were found during retroflexion. The hemorrhoids were medium-sized. Impression: - The examined portion of the ileum was normal. - Four 4 to 8 mm polyps at the recto-sigmoid colon, in the descending colon, in the transverse colon and in the ascending colon, removed with a cold snare. Resected and retrieved. - Moderate diverticulosis in the sigmoid colon. There was no evidence of diverticular bleeding. - Non-bleeding external and internal hemorrhoids. Recommendation: - Patient has a contact number available for emergencies. The signs and symptoms of potential delayed complications were discussed with the patient. Return to normal activities tomorrow. Written discharge instructions were provided to the patient. - High fiber diet. - Continue present medications. - Use fiber, for example Citrucel, Fibercon, Konsyl or Metamucil. - Await pathology results. - Repeat colonoscopy in 3 - 5 years for surveillance based on pathology results. - Telephone GI clinic for pathology results in 2 weeks. - Return to primary care physician. Freddie Rosales MD Freddie Rosales MD 04/12/2020 3:24:33 PM Electronically signed by Freddie Rosales MD Number of Addenda: 0 Note Initiated On: 04/12/2020 2:28 PM Estimated Blood Loss: Estimated blood loss was minimal.
[2020-04-12 15:30] VITALS: BP 143/87
== END 2020-04-12 15:46 | disposition home or self-care (01) ==
LOC: M OPP 12:09
PROVIDERS: ATTEND Internal Medicine Gastroenterology
DX: Z86.010 Personal history of colon polyps (principal); Z09 Encounter for follow-up examination after completed treatment for conditions other than malignant neoplasm; K64.8 Other hemorrhoids; K63.5 Polyp of colon; K57.30 Diverticulosis of large intestine without perforation or abscess without bleeding; I10 Essential (primary) hypertension; F17.210 Nicotine dependence, cigarettes, uncomplicated; Z79.899 Other long term (current) drug therapy; Z85.3 Personal history of malignant neoplasm of breast

== ENCOUNTER → 2020-06-29 | Outpatient (CLI) | payer OTHER ==
[~2020-06-29] MED LIST changes: -NS 1,000 ML IV ONE
--- NOTE | 2020-06-29 09:23 | REPMRS ---
Patient History No known family history of cancer. Malignant radio exam breast specimen of the right breast, August 05, 2019. Malignant US guided breast biopsy of the right breast, June 09, 2019. Pre-pectoral silicone gel implants in both breasts, 2008. Digital Woman Screen Mammo: June 29, 2020 - Exam #: [id number] Bilateral CC and MLO view(s) were taken. Technologist: Genevieve Jackson, Technologist Prior study comparison: June 09, 2019, right breast digital mammo diagnostic unilateral, performed at . June 05, 2019, digital mammo diagnostic bilateral, performed at . March 28, 2017, bilateral digital mammo screening bilat, performed at [facility]. FINDINGS: There are scattered fibroglandular densities. There has been no change in the appearance of the left breast parenchyma in the interval since the prior examination. No mass, architectural distortion, or microcalcific grouping has developed. No suspicious finding. Visualized implant margins are smooth. 3-D tomosynthesis shows no additional findings. Assessment: BI-RADS/ACR category 2 mammogram. Benign Findings. Recommendation Routine screening mammogram of both breasts in 1 year. This mammogram was interpreted with the aid of an FDA-approved computer-aided dectection system. Electronically Signed By: Umer Ronquillo MD 06/29/20 0923
== END ==
LOC: M WHC 07:55
PROVIDERS: ATTEND Surgery
DX: N63.10 Unspecified lump in the right breast, unspecified quadrant (principal)

== ENCOUNTER → 2020-08-11 | Outpatient (CLI) | payer OTHER ==
[~2020-08-11] MED LIST changes: +CALC1TAB42 PO; +HYDR-3490 PO; -HYDR25TAB PO
--- NOTE | 2020-08-11 11:20 | REP ---
INDICATION: MALIGNANT NEOPLASM OF CENTRAL PORTION OF RIGHT FEMALE BREAST COMPARISON: None. TECHNIQUE: PA and lateral. FINDINGS: The mediastinum and cardiac silhouette are normal. The lung ferrer are clear and without acute consolidation, effusion, or pneumothorax. The skeletal structures are intact and normal. Right breast implant. IMPRESSION: No acute cardiopulmonary process. <Electronically signed by Maynor Valente > 08/11/20 1111
== END ==
LOC: M RAD 11:02
PROVIDERS: ATTEND Plastic Surgery Surgery of the Hand
DX: C50.111 Malignant neoplasm of central portion of right female breast (principal); Z98.890 Other specified postprocedural states

== ENCOUNTER → 2020-08-21 | Outpatient (CLI) | payer OTHER | LOC: M LABSMTC 09:37 | PROVIDERS: ATTEND Anesthesiology | DX: Z01.812 Encounter for preprocedural laboratory examination (principal); Z20.822 Contact with and (suspected) exposure to COVID-19 ==

== ENCOUNTER 2020-08-26 06:23 | Day surgery (SDC) | payer OTHER ==
[~2020-08-26] VITALS: Ht 165.1 cm; Wt 88.5 kg
[~2020-08-26 06:23] MED LIST changes: +LR 1,000 ML IV ONE; +ceFAZolin SOD 2 GM in IV 1 EA IV ONE
[2020-08-26] MEDS ORDERED: BACITRACIN PWD 50,000 UNITS VIAL As Ordered ONE (07:15)
[2020-08-26] MEDS ORDERED: BUPIVACAINE LIPOSOME/PF 1.3% 20ML VIAL (13.3MG/ML)(EXPAREL)(C9290 PER1MG) As Ordered ONE (07:15)
[2020-08-26] MEDS ORDERED: dexameTHASONE 4 MG/ML 1ML VIAL (J1100 PER 1MG) As Ordered ONE (07:18)
[2020-08-26] MEDS ORDERED: ROCURONIUM BROMIDE 50 MG/5 ML VIAL As Ordered ONE ×2 (07:18→08:24)
[2020-08-26] MEDS ORDERED: LIDOCAINE 2% 100MG/5ML SDV (FOR ANES.) As Ordered ONE (07:18)
[2020-08-26] MEDS ORDERED: propofoL 200 MG/20 ML VIAL As Ordered ONE (07:18)
[2020-08-26] MEDS ORDERED: ONDANSETRON 4MG/2ML VIAL As Ordered ONE (07:18)
[2020-08-26] MEDS ORDERED: MIDAZOLAM INJ 2MG/2ML VIAL (J2250 PER 1MG) As Ordered ONE (07:19)
[2020-08-26] MEDS ORDERED: fentaNYL 250 MCG/5 ML INJECTION (J3010) As Ordered ONE (07:19)
[2020-08-26] MEDS ORDERED: LACRILUBE (AKWA TEARS) OPHTH OINT 3.5 GM As Ordered ONE (07:52)
[2020-08-26] MEDS ORDERED: LIDOCAINE 2% JELLY 5ML TUBE As Ordered ONE (07:59)
[2020-08-26] MEDS ORDERED: ePHEDrine SULFATE 25 MG/5 ML(5MG/ML) SYRINGE As Ordered ONE ×2 (08:05→08:45)
[2020-08-26] MEDS ORDERED: PHENYLephrine 500MCG 5ML (100MCG/ML) SYRINGE As Ordered ONE (08:05)
[2020-08-26] MEDS ORDERED: SUGAMMADEX SODIUM 500 MG/5 ML VIAL (BRIDION) As Ordered ONE (08:33)
[2020-08-26] MEDS ORDERED: HYDROmorphone HCL 2 MG/ML 1ML VIAL (J1170) As Ordered ONE (08:33)
[2020-08-26] MEDS ORDERED: ACETAMINOPHEN 1000MG 100ML IV BTL (OFIRMEV) (J0131 PER 10MG) As Ordered ONE (08:34)
--- NOTE | 2020-08-26 09:44 | POST-OPPD ---
Postoperative Procedure Note Date Of Procedure: Aug 26, 2020 PREOPERATIVE DIAGNOSIS: Right breast cancer. Acquired deformity right breast. POSTOPERATIVE DIAGNOSIS: same FINDINGS: Right breast leather products supervisor 450 cc, Left breast implant Allergan style 20, 450 cc smooth gel. PROCEDURE: Right breast reconstruction with exchange of leather products supervisor to permanent implant and mastopexy, left breast exchange of breast implant for symmetry. SURGEON: Dr Villaseñor ANESTHESIA: General SPECIMENS: Right breast leather products supervisor (gross), right breast tissue, Left breast implant (gross) ESTIMATED BLOOD LOSS: 10cc REPLACED: none DRAINS: none COMPLICATIONS: none POSTOPERATIVE CONDITION: stable ADRIA VILLASEÑOR DO Aug 26, 2020 09:44
--- NOTE | 2020-08-26 09:44 | ROOPDOC ---
[facility] Report Of Operation Report of Operation DATE OF PROCEDURE: 08/26/20 PREOPERATIVE DIAGNOSIS: Right breast cancer. Acquired deformity right breast. POSTOPERATIVE DIAGNOSIS: same FINDINGS: Right breast parachute harness rigger 450 cc, Left breast implant Allergan style 20, 450 cc smooth gel. PROCEDURE: Right breast reconstruction with exchange of parachute harness rigger to permanent implant and mastopexy, left breast exchange of breast implant for symmetry. SURGEON: Dr Villaseñor ANESTHESIA: General SPECIMENS: Right breast parachute harness rigger (gross), right breast tissue, Left breast implant (gross) ESTIMATED BLOOD LOSS: 10cc REPLACED: none DRAINS: none COMPLICATIONS: none POSTOPERATIVE CONDITION: stable Procedure: This is a 59-year-old female status post right quadrantectomy with immediate reconstruction with tissue parachute harness rigger, 450 cc mentor. Patient developed significant asymmetry status post radiation to the right breast where she would require mastopexy on the right side as well. Patient is ready for second stage of procedure for reconstruction today with planned exchange of right breast parachute harness rigger to permanent implants with open capsulotomy and mastopexy and left breast implant exchange for symmetry. Risk, benefits and alternatives of the procedure discussed with the patient in detail and she is ready to proceed. The day of surgery. Informed consent was confirmed and then patient was brought into the operating room, placed in supine position. General anesthesia was induced. She was given preoperative antibiotics, heparin and sequential stockings were placed in the lower calves. She is prepped and draped in the usual sterile fashion. We started our procedure on the right side. Superior periareolar incision was outlined, which included the old scar which was excised using 10 blade. Tissue sent to pathology. Sharp dissection with electrocautery carried out until the pectoralis muscle fibers and encountered and small flap created undermining superiorly. Oblique incision carried out through the pocket. 450 mL parachute harness rigger was identified, completely intact. It was deflated and removed without difficulties. Pocket was evaluated under direct vision with lighted retractor and open capsulotomy performed using electrocautery. Hemostasis was obtained using electrocautery as well. 450 mL Xtra fill sizer was introduced in to the pocket, it is a perfect fit. Pocket irrigated with Bacitracin irrigation solution. 450 mL extra fill [place] moderate plus profile implant was introduced into the pocket without difficulties using a funnel. Inferior part of the subareolar incision was completed and donut mastopexy was performed elevating the NAC by 2 cm for symmetry with the left side. The pocket was closed in layers with interrupted 3- 0 Vicryl and 3-0 Monocryl sutures. Also, 3-0 Vicryl Monocryl, 4-0 Monocryl, and 5-0 Plain gut sutures for the skin. Then we turn our attention to the left side. Inferior horizontal incision was carried out. Sharp dissection with electrocautery carried out until the pectoralis muscle fibers and encountered and small flap created undermining superiorly. Incision carried out through the pocket . 450 mL smooth round gel Allergan implant identified. Completely intact. It was removed without difficulties. Pocket was evaluated under direct vision with lighted retractor. Pocket stretched out, especially laterally. Smooth, thin capsule. Excess tissue extending to the lateral chest which was plicated with interrupted 0 Vycril suture and 0 barbed PDS suture. 450 mL extra fill [place] moderate plus profile implant was introduced into the pocket without difficulties using a funnel. Pocket closed with 3-0 Vicryl and 3-0 Monocryl sutures. Good symmetry achieved between the breasts. Prinio dressing applied to the inframammary incision and Xeroform to the NAC followed by a bulky dressing and a surgical bra. Patient extubated without any difficulties and transferred to recovery room in stable condition. ADRIA VILLASEÑOR DO Aug 26, 2020 09:44
[2020-08-26] MEDS ORDERED: OXYC1TAB23 PO (09:48)
[2020-08-26] MEDS ORDERED: LR 1,000 ML IV SCH (10:15)
[2020-08-26] MEDS ORDERED: HYDROMORPHONE HCL 0.5 MG/ 0.5 ML SYRINGE (J1170 PER 1) IV PRN (10:15)
[2020-08-26] MEDS ORDERED: ONDANSETRON 4MG/2ML VIAL IV PRN (10:15)
[2020-08-26] MEDS ORDERED: fentaNYL 100 MCG/2 ML INJECTION (J3010) IV PRN (10:15)
[2020-08-26] MEDS ORDERED: oxyCODONE 5MG TAB PO PRN (10:15)
[2020-08-26 11:35] VITALS: BP 138/79
== END 2020-08-26 11:35 | disposition home or self-care (01) ==
LOC: M SDC 06:23
PROVIDERS: ATTEND Plastic Surgery Surgery of the Hand
DX: C50.111 Malignant neoplasm of central portion of right female breast (principal); Z98.82 Breast implant status; I10 Essential (primary) hypertension; E78.5 Hyperlipidemia, unspecified; Z92.3 Personal history of irradiation; Z92.21 Personal history of antineoplastic chemotherapy; Z79.899 Other long term (current) drug therapy; F17.218 Nicotine dependence, cigarettes, with other nicotine-induced disorders
CPT/HCPCS: 19316; 19328; 19340; 19342; 88300; 88302; C9290; J0131; J0690; J1100; J1170; J2250; J2370; J2405; J3010; L8600

== ENCOUNTER → 2021-01-15 | Outpatient (CLI) | payer OTHER ==
[~2021-01-15] MED LIST changes: +BUPR15TA PO; -LR 1,000 ML IV ONE; -ceFAZolin SOD 2 GM in IV 1 EA IV ONE
== END ==
LOC: M LABSMTC 10:14
PROVIDERS: ATTEND Anesthesiology
DX: Z01.812 Encounter for preprocedural laboratory examination (principal); Z20.822 Contact with and (suspected) exposure to COVID-19

== ENCOUNTER → 2021-01-15 | Outpatient (CLI) | payer OTHER ==
[2021-01-15 11:47] LABS: BASO % 0.7 % (0.0-1.0); EOS # 0.1 10^3/uL (0.0-0.5); EOS % 2.2 % (0.0-3.0); HEMATOCRIT 40.3 % (36.0-47.0); HEMOGLOBIN 13.7 g/dl (12.0-15.5); LYMPH # 1.8 10^3/uL (1.5-5.0); LYMPH % 31.8 % (24.0-44.0); MEAN CORPUSCULAR HEMOGLOBIN 31.4 pg (27.0-33.0); MEAN CORPUSCULAR VOLUME 92.2 fl (80.0-96.0); MONO # 0.6 10^3/uL (0.0-0.8); NEUTROPHILS % 55.1 % (36.0-66.0); PLATELET COUNT, AUTOMATED 221 10^3/uL (150-450); RED BLOOD COUNT 4.37 10^6/uL (4.00-5.40); WHITE BLOOD COUNT 5.5 10^3/uL (4.0-10.0)
[2021-01-15 12:14] LABS: ALBUMIN 3.7 GM/DL (3.2-5.2); ALT/SGPT 22 U/L (12-78); BILIRUBIN,TOTAL 0.3 MG/DL (0.2-1.0); BLOOD UREA NITROGEN 25 MG/DL (7-18); CALCIUM LEVEL 8.6 MG/DL (8.5-10.1); CARBON DIOXIDE LEVEL 25 MEQ/L (21-32); CHLORIDE LEVEL 112 MEQ/L (98-107); CREATININE FOR GFR 0.68 MG/DL (0.55-1.30); GLOMERULAR FILTRATION RATE > 60.0 (>51); GLUCOSE, FASTING 107 MG/DL (70-100); POTASSIUM SERUM 4.4 MEQ/L (3.5-5.1); SODIUM LEVEL 142 MEQ/L (136-145); TOTAL PROTEIN 6.7 GM/DL (6.4-8.2)
== END ==
LOC: M LAB 11:04
PROVIDERS: ATTEND Physician Assistant Medical
DX: Z01.812 Encounter for preprocedural laboratory examination (principal); I10 Essential (primary) hypertension

== ENCOUNTER 2021-01-20 06:02 | Day surgery (SDC) | payer OTHER ==
[~2021-01-20] VITALS: Ht 165.1 cm; Wt 82.1 kg
[~2021-01-20 06:02] MED LIST changes: +LR 1,000 ML IV ONE; +ceFAZolin SOD 2 GM in IV 1 EA IV ONE
[2021-01-20] MEDS ORDERED: GENTAMICIN SULF 80MG/2ML VIAL As Ordered ONE (07:10)
[2021-01-20] MEDS ORDERED: LIDOCAINE 2% 100MG/5ML SDV (FOR ANES.) As Ordered ONE (07:25)
[2021-01-20] MEDS ORDERED: propofoL 200 MG/20 ML VIAL As Ordered ONE (07:25)
[2021-01-20] MEDS ORDERED: dexameTHASONE 4 MG/ML 1ML VIAL (J1100 PER 1MG) As Ordered ONE (07:25)
[2021-01-20] MEDS ORDERED: MIDAZOLAM INJ 2MG/2ML VIAL (J2250 PER 1MG) As Ordered ONE (07:26)
[2021-01-20] MEDS ORDERED: fentaNYL 250 MCG/5 ML INJECTION (J3010) As Ordered ONE (07:26)
[2021-01-20] MEDS ORDERED: ROCURONIUM BROMIDE 50 MG/5 ML VIAL As Ordered ONE (07:37)
[2021-01-20] MEDS ORDERED: ONDANSETRON 4MG/2ML VIAL As Ordered ONE (08:07)
[2021-01-20] MEDS ORDERED: ACETAMINOPHEN 1000MG 100ML IV BTL (OFIRMEV) (J0131 PER 10MG) As Ordered ONE (08:09)
[2021-01-20] MEDS: BUPIVACAINE LIPOSOME/PF 1.3% 20ML VIAL (13.3MG/ML)(EXPAREL)(C9290 PER1MG) As Ordered ONE (08:10)
[2021-01-20] MEDS ORDERED: LACRILUBE (AKWA TEARS) OPHTH OINT 3.5 GM As Ordered ONE (08:20)
--- NOTE | 2021-01-20 08:36 | POST-OPPD ---
Postoperative Procedure Note Date Of Procedure: Jan 20, 2021 PREOPERATIVE DIAGNOSIS: Right reconstructed breast deformity. POSTOPERATIVE DIAGNOSIS: same PROCEDURE: Right reconstructed breast revision. SURGEON: Dr Villaseñor SPOKE MAKER: none ANESTHESIA: general LMA ESTIMATED BLOOD LOSS: 1 cc FINDINGS: right periareolar contracted scar and open wound. Scar 3 cm SPECIMENS: scar tissue right breast 3 cm length. COMPLICATIONS: none REPLACED: none DRAINS: none POSTOPERATIVE CONDITION: stable ADRIA VILLASEÑOR DO Jan 20, 2021 08:36
--- NOTE | 2021-01-20 08:37 | ROOPDOC ---
[facility] Report Of Operation Report of Operation DATE OF PROCEDURE: 01/20/21 PREOPERATIVE DIAGNOSIS: Right reconstructed breast deformity. POSTOPERATIVE DIAGNOSIS: same PROCEDURE: Right reconstructed breast revision. SURGEON: Dr Villaseñor RESOURCE FORESTER: none ANESTHESIA: general LMA ESTIMATED BLOOD LOSS: 1 cc FINDINGS: right periareolar contracted scar and open wound. Scar 3 cm SPECIMENS: scar tissue right breast 3 cm length. COMPLICATIONS: none REPLACED: none DRAINS: none POSTOPERATIVE CONDITION: stable DESCRIPTION OF PROCEDURE: This is a 60 year-old female with chronic nonhealing scar on the right lateral nipple areolar complex post breast reconstruction. Patient had right breast cancer with lumpectomy and reconstruction with professor of family medicine to implant. She had a course of radiation treatment. She has delayed healing on her lateral nipple areolar incision which partially healed with contraction and indentation. Patient would like to have it revised. There is no evidence of implant involvement or contamination. Risks, benefits, and alternatives discussed with the patient. She is ready to proceed. After obtaining informed consent patient brought into the operating room, placed in supine position, perioperative antibiotics given, sequential stockings placed in the lower calves, general anesthesia induced. She was prepped and draped in the usual sterile fashion. Incision carried out around the area of the scar and the wound in elliptical fashion. The involved tissue is completely excised. Contracture is released by underlying the edges. No visible implant in the wound. Hemostasis obtained using electrocautery. Total scar is like 3 cm in length. Nipple areolar complex was realigned and closed with interrupted 3-0 and 4-0 Monocryl sutures. 5-0 Monocryl suture intradermal running stitch was placed as well 5-0 plain gut vertical matrass sutures. Steri strips on the incision. 5 cc of Exparel given for pain control. Patient extubated in operating room, tolerated procedure well, and transferred to recovery room in stable condition. ADRIA VILLASEÑOR DO Jan 20, 2021 08:37
[2021-01-20 10:04] VITALS: BP 153/87
[2021-01-24] MEDS ORDERED: LETR2.5T2 PO (15:12)
== END 2021-01-20 10:17 | disposition home or self-care (01) ==
LOC: M SDC 06:02
PROVIDERS: ATTEND Plastic Surgery Surgery of the Hand
DX: N65.0 Deformity of reconstructed breast (principal); L90.5 Scar conditions and fibrosis of skin; N64.89 Other specified disorders of breast; Z85.3 Personal history of malignant neoplasm of breast; I10 Essential (primary) hypertension; E78.5 Hyperlipidemia, unspecified; K57.90 Diverticulosis of intestine, part unspecified, without perforation or abscess without bleeding; E66.9 Obesity, unspecified; Z92.21 Personal history of antineoplastic chemotherapy; Z92.3 Personal history of irradiation; Z79.899 Other long term (current) drug therapy
CPT/HCPCS: 19380; 88302; C9290; J0131; J0690; J1100; J1580; J2250; J2405; J3010

== ENCOUNTER → 2021-02-18 | Outpatient (REF) | payer OTHER ==
[~2021-02-18] MED LIST changes: +LOSA50TA88 PO; -LR 1,000 ML IV ONE; -ceFAZolin SOD 2 GM in IV 1 EA IV ONE
== END ==
LOC: M SFHCWAGY 19:16
PROVIDERS: ATTEND Obstetrics & Gynecology
DX: Z12.4 Encounter for screening for malignant neoplasm of cervix (principal); N95.2 Postmenopausal atrophic vaginitis

== ENCOUNTER → 2021-03-19 | Outpatient (CLI) | payer OTHER ==
[2021-03-19 11:11] LABS: BASO % 0.5 % (0.0-1.0); EOS # 0.2 10^3/uL (0.0-0.5); EOS % 3.3 % (0.0-3.0); HEMATOCRIT 42.5 % (36.0-47.0); HEMOGLOBIN 14.1 g/dl (12.0-15.5); LYMPH # 1.7 10^3/uL (1.5-5.0); LYMPH % 27.5 % (24.0-44.0); MEAN CORPUSCULAR HGB CONC 33.2 g/dl (32.0-36.5); MEAN CORPUSCULAR VOLUME 93.4 fl (80.0-96.0); MONO # 0.5 10^3/uL (0.0-0.8); MONO % 8.2 % (2.0-8.0); NEUTROPHILS # 3.6 10^3/uL (1.5-8.5); NEUTROPHILS % 60.3 % (36.0-66.0); PLATELET COUNT, AUTOMATED 220 10^3/uL (150-450); RED BLOOD COUNT 4.55 10^6/uL (4.00-5.40)
[2021-03-19 11:38] LABS: ALBUMIN 3.9 GM/DL (3.2-5.2); ALT/SGPT 31 U/L (12-78); BILIRUBIN,TOTAL 0.6 MG/DL (0.2-1.0); BLOOD UREA NITROGEN 15 MG/DL (7-18); CALCIUM LEVEL 9.6 MG/DL (8.5-10.1); CARBON DIOXIDE LEVEL 28 MEQ/L (21-32); CHLORIDE LEVEL 106 MEQ/L (98-107); CHOLESTEROL LEVEL 169 MG/DL (<200); CREATININE FOR GFR 0.58 MG/DL (0.55-1.30); FREE T4 0.94 NG/DL (0.76-1.46); GLOMERULAR FILTRATION RATE > 60.0 (>51); GLUCOSE, FASTING 98 MG/DL (70-100); HDL CHOLESTEROL 65 MG/DL (>40); LDL CHOLESTEROL 84 MG/DL (<100); NON-HDL-C 104 MG/DL; POTASSIUM SERUM 4.4 MEQ/L (3.5-5.1); SODIUM LEVEL 139 MEQ/L (136-145); TOTAL PROTEIN 7.2 GM/DL (6.4-8.2); TRIGLYCERIDES LEVEL 98 MG/DL (<150)
== END ==
LOC: M LAB 09:06
PROVIDERS: ATTEND Physician Assistant Medical
DX: R53.83 Other fatigue (principal); I10 Essential (primary) hypertension; E78.2 Mixed hyperlipidemia

== ENCOUNTER → 2021-04-30 | Outpatient (CLI) | payer OTHER ==
[~2021-04-30] MED LIST changes: +FISH1000 PO; +K-TA10TA2 PO
== END ==
LOC: M LABSMTC 10:03
PROVIDERS: ATTEND Anesthesiology
DX: Z01.812 Encounter for preprocedural laboratory examination (principal); Z20.822 Contact with and (suspected) exposure to COVID-19

== ENCOUNTER 2021-05-05 09:45 | Day surgery (SDC) | payer OTHER ==
[~2021-05-05] VITALS: Ht 165.1 cm; Wt 88.8 kg
[~2021-05-05 09:45] MED LIST changes: +LIDOCAINE 2% 100MG/5ML SDV (FOR ANES.) As Ordered ONE; +LOSA50TA28 PO; -LOSA50TA88 PO; +LR 1,000 ML IV ONE; +MIDAZOLAM INJ 2MG/2ML VIAL (J2250 PER 1MG) As Ordered ONE; +ONDA-84 PO; -ONDA8TAB10 PO; +ONDANSETRON 4MG/2ML VIAL As Ordered ONE; -PROC10TA4 PO; +PROC10TA5 PO; +ROCURONIUM BROMIDE 50 MG/5 ML VIAL As Ordered ONE; +ceFAZolin SOD 2 GM in IV 1 EA IV ONE; +dexameTHASONE 4 MG/ML 1ML VIAL (J1100 PER 1MG) As Ordered ONE; +fentaNYL 250 MCG/5 ML INJECTION As Ordered ONE; +propofoL 200 MG/20 ML VIAL As Ordered ONE
[2021-05-05] MEDS ORDERED: EPINEPHrine INJ 1 MG/ML 1ML AMP As Ordered ONE (12:19)
[2021-05-05] MEDS ORDERED: ceFAZolin 1GM VIAL (J0690 PER 500MG) As Ordered ONE (12:19)
[2021-05-05] MEDS ORDERED: GENTAMICIN SULF 80MG/2ML VIAL As Ordered ONE (12:19)
[2021-05-05] MEDS ORDERED: LIDOCAINE 1% MDV 20ML VIAL As Ordered ONE (12:19)
[2021-05-05] MEDS ORDERED: BUPIVACAINE LIPOSOME/PF 1.3% 20ML VIAL (13.3MG/ML)(EXPAREL)(C9290 PER1MG) As Ordered ONE (12:20)
[2021-05-05] MEDS ORDERED: SEVOFLURANE INHAL SOLN 250 ML BTL As Ordered ONE (12:20)
[2021-05-05] MEDS ORDERED: ePHEDrine SULFATE 25 MG/5 ML(5MG/ML) SYRINGE As Ordered ONE ×2 (13:01→13:41)
[2021-05-05] MEDS ORDERED: POVIDONE-IODINE 5% OPHTH PREP SOL 30ML As Ordered ONE (13:08)
[2021-05-05] MEDS ORDERED: PHENYLephrine 500MCG 5ML (100MCG/ML) SYRINGE As Ordered ONE ×2 (13:15→14:43)
[2021-05-05] MEDS ORDERED: ACETAMINOPHEN 1000MG 100ML IV BTL (OFIRMEV) (J0131 PER 10MG) As Ordered ONE (13:36)
[2021-05-05] MEDS ORDERED: HYDROmorphone HCL 2MG/ML 1ML VIAL As Ordered ONE (14:04)
[2021-05-05] MEDS ORDERED: BACITRACIN OINTMENT 30GM TUBE As Ordered ONE (14:55)
[2021-05-05] MEDS ORDERED: TRAM50TA2 PO (15:36)
[2021-05-05] MEDS ORDERED: HYDROMORPHONE HCL 0.5 MG/ 0.5 ML SYRINGE (J1170 PER 1) IV PRN (15:45)
[2021-05-05] MEDS ORDERED: oxyCODONE 5MG TAB PO PRN (15:45)
[2021-05-05] MEDS ORDERED: LR 1,000 ML IV SCH (15:45)
[2021-05-05] MEDS ORDERED: fentaNYL 100 MCG/2 ML INJECTION IV PRN (15:45)
[2021-05-05 17:16] VITALS: BP 149/77
== END 2021-05-05 17:18 | disposition home or self-care (01) ==
LOC: M SDC 09:45
PROVIDERS: ATTEND Plastic Surgery Surgery of the Hand
DX: N65.0 Deformity of reconstructed breast (principal); L90.5 Scar conditions and fibrosis of skin; L98.8 Other specified disorders of the skin and subcutaneous tissue; Z92.3 Personal history of irradiation; I10 Essential (primary) hypertension; E78.00 Pure hypercholesterolemia, unspecified; C50.011 Malignant neoplasm of nipple and areola, right female breast; Z87.891 Personal history of nicotine dependence; Z79.899 Other long term (current) drug therapy
CPT/HCPCS: 15771; 15772; 15773; 19380; J0131; J0171; J0690; J1100; J1170; J2250; J2370; J2405; J3010

== ENCOUNTER → 2021-07-01 | Outpatient (CLI) | payer OTHER ==
[~2021-07-01] MED LIST changes: -LIDOCAINE 2% 100MG/5ML SDV (FOR ANES.) As Ordered ONE; -LR 1,000 ML IV ONE; -MIDAZOLAM INJ 2MG/2ML VIAL (J2250 PER 1MG) As Ordered ONE; -ONDANSETRON 4MG/2ML VIAL As Ordered ONE; -ROCURONIUM BROMIDE 50 MG/5 ML VIAL As Ordered ONE; +TRAM50TA2 PO; -ceFAZolin SOD 2 GM in IV 1 EA IV ONE; -dexameTHASONE 4 MG/ML 1ML VIAL (J1100 PER 1MG) As Ordered ONE; -fentaNYL 250 MCG/5 ML INJECTION As Ordered ONE; -propofoL 200 MG/20 ML VIAL As Ordered ONE
== END ==
LOC: M WHC 14:27
PROVIDERS: ATTEND Surgery
DX: Z85.3 Personal history of malignant neoplasm of breast (principal); Z92.21 Personal history of antineoplastic chemotherapy; Z92.3 Personal history of irradiation; Z98.82 Breast implant status
CPT/HCPCS: 77066; G0279

== ENCOUNTER → 2021-10-07 | Outpatient (CLI) | payer OTHER ==
[~2021-10-07] MED LIST changes: +GLUC500C65 PO
[2021-10-07 15:02] LABS: HEMATOCRIT 36.8 % (36.0-47.0); HEMOGLOBIN 12.5 g/dl (12.0-15.5); MEAN CORPUSCULAR HEMOGLOBIN 30.7 pg (27.0-33.0); MEAN CORPUSCULAR VOLUME 90.4 fl (80.0-96.0); PLATELET COUNT, AUTOMATED 190 10^3/uL (150-450); RED BLOOD COUNT 4.07 10^6/uL (4.00-5.40)
[2021-10-07 15:25] LABS: HEMOGLOBIN A1c 5.9 %
[2021-10-07 15:41] LABS: ALBUMIN 3.9 GM/DL (3.2-5.2); BLOOD UREA NITROGEN 26 MG/DL (7-18); CALCIUM LEVEL 9.1 MG/DL (8.8-10.2); CARBON DIOXIDE LEVEL 26 MEQ/L (21-32); CHLORIDE LEVEL 109 MEQ/L (98-107); CHOLESTEROL LEVEL 151 MG/DL (<200); CHOLESTEROL RISK RATIO 2.516 (<5); CREATININE FOR GFR 0.72 MG/DL (0.55-1.30); FREE T4 0.86 NG/DL (0.76-1.46); GLOMERULAR FILTRATION RATE > 60.0 (>45); GLUCOSE, FASTING 93 MG/DL (70-100); HDL CHOLESTEROL 60 MG/DL (>40); LDL CHOLESTEROL 74 MG/DL (<100); NON-HDL-C 91 MG/DL; PHOSPHORUS LEVEL 3.8 MG/DL (2.5-4.9); POTASSIUM SERUM 3.8 MEQ/L (3.5-5.1); SODIUM LEVEL 139 MEQ/L (136-145); TRIGLYCERIDES LEVEL 86 MG/DL (<150); VITAMIN B12 LEVEL 307 PG/ML
== END ==
LOC: M LAB 14:33
PROVIDERS: ATTEND Physician Assistant
DX: E78.5 Hyperlipidemia, unspecified (principal); I10 Essential (primary) hypertension; H02.403 Unspecified ptosis of bilateral eyelids; R53.83 Other fatigue; R60.0 Localized edema; R53.1 Weakness; M25.552 Pain in left hip

== ENCOUNTER → 2021-12-09 | Outpatient (CLI) | payer OTHER ==
[2021-12-09 13:03] LABS: BASO % 0.2 % (0.0-1.0); EOS # 0.1 10^3/uL (0.0-0.5); EOS % 1.2 % (0.0-3.0); HEMATOCRIT 41.1 % (36.0-47.0); HEMOGLOBIN 13.9 g/dl (12.0-15.5); LYMPH # 1.7 10^3/uL (1.5-5.0); LYMPH % 33.3 % (24.0-44.0); MEAN CORPUSCULAR HEMOGLOBIN 30.8 pg (27.0-33.0); MEAN CORPUSCULAR HGB CONC 33.8 g/dl (32.0-36.5); MEAN CORPUSCULAR VOLUME 91.1 fl (80.0-96.0); MONO # 0.4 10^3/uL (0.0-0.8); NEUTROPHILS # 2.9 10^3/uL (1.5-8.5); NEUTROPHILS % 57.3 % (36.0-66.0); PLATELET COUNT, AUTOMATED 226 10^3/uL (150-450); RED BLOOD COUNT 4.51 10^6/uL (4.00-5.40)
[2021-12-09 13:36] LABS: ALBUMIN 4.3 GM/DL (3.2-5.2); BLOOD UREA NITROGEN 23 MG/DL (7-18); CALCIUM LEVEL 10.1 MG/DL (8.8-10.2); CARBON DIOXIDE LEVEL 24 MEQ/L (21-32); CHLORIDE LEVEL 106 MEQ/L (98-107); GLOMERULAR FILTRATION RATE > 60.0 (>45); GLUCOSE, FASTING 100 MG/DL (70-100); PHOSPHORUS LEVEL 3.7 MG/DL (2.5-4.9); SODIUM LEVEL 139 MEQ/L (136-145)
== END ==
LOC: M RAD 12:19
PROVIDERS: ATTEND Physician Assistant
DX: Z01.818 Encounter for other preprocedural examination (principal); Z11.52 Encounter for screening for COVID-19

== ENCOUNTER 2021-12-13 06:13 | Day surgery (SDC) | payer OTHER ==
[~2021-12-13] VITALS: Ht 165.1 cm; Wt 91.6 kg
[2021-12-13] MEDS ORDERED: LR 1,000 ML IV SCH ×2 (06:45→08:55)
[2021-12-13] MEDS ORDERED: ceFAZolin SOD 2 GM in IV 1 EA IV ONE (06:45)
[2021-12-13] MEDS ORDERED: LIDOCAINE W/EPINEPHRINE 1% 20ML VIAL As Ordered ONE (07:22)
[2021-12-13] MEDS ORDERED: LIDOCAINE 2% W/EPINEPHRINE 20ML VIAL **PRES FREE As Ordered ONE (07:22)
[2021-12-13] MEDS ORDERED: POLYSPORIN OPHTH OINT 3.5 GM As Ordered ONE (07:22)
[2021-12-13] MEDS ORDERED: POVIDONE-IODINE 5% OPHTH PREP SOL 30ML As Ordered ONE (07:22)
[2021-12-13] MEDS ORDERED: ONDANSETRON 4MG 2ML VIAL As Ordered ONE (08:04)
[2021-12-13] MEDS ORDERED: LIDOCAINE 2% INJ 100 MG/5 ML SYRINGE As Ordered ONE (08:04)
[2021-12-13] MEDS ORDERED: dexameTHASONE 4 MG/ML 1ML VIAL (J1100 PER 1MG) As Ordered ONE (08:04)
[2021-12-13] MEDS ORDERED: propofoL 200 MG/20 ML VIAL As Ordered ONE (08:04)
[2021-12-13] MEDS ORDERED: MIDAZOLAM INJ 2MG/2ML VIAL (J2250 PER 1MG) As Ordered ONE (08:04)
[2021-12-13] MEDS ORDERED: fentaNYL 100 MCG/2 ML INJECTION As Ordered ONE (08:04)
[2021-12-13] MEDS ORDERED: GLYCOPYRROLATE INJ 0.2 MG/ML 2 ML VIAL As Ordered ONE (08:05)
[2021-12-13] MEDS ORDERED: ACETAMINOPHEN 1000MG 100ML IV BTL (OFIRMEV) (J0131 PER 10MG) As Ordered ONE (08:08)
[2021-12-13] MEDS ORDERED: oxyCODONE 5MG TAB PO PRN (08:55)
[2021-12-13] MEDS ORDERED: fentaNYL 100 MCG/2 ML INJECTION IV PRN (08:55)
[2021-12-13] MEDS ORDERED: ONDANSETRON 4MG 2ML VIAL IV PRN (08:55)
[2021-12-13] MEDS ORDERED: HYDROMORPHONE HCL 0.5 MG/ 0.5 ML SYRINGE (J1170 PER 1) IV PRN (08:55)
[2021-12-13] MEDS ORDERED: TRAM50TA2 PO (09:07)
[2021-12-13] MEDS ORDERED: TETRACAINE 0.5% OPHTH SOLN 4ML OU ONE (09:50)
[2021-12-13 10:45] VITALS: BP 168/81
== END 2021-12-13 11:00 | disposition home or self-care (01) ==
LOC: M SDC 06:13
PROVIDERS: ATTEND Plastic Surgery Surgery of the Hand
DX: H02.831 Dermatochalasis of right upper eyelid (principal); H02.834 Dermatochalasis of left upper eyelid; K57.92 Diverticulitis of intestine, part unspecified, without perforation or abscess without bleeding; I10 Essential (primary) hypertension; E78.5 Hyperlipidemia, unspecified; Z79.899 Other long term (current) drug therapy; Z92.21 Personal history of antineoplastic chemotherapy; Z85.3 Personal history of malignant neoplasm of breast; Z92.3 Personal history of irradiation; Z87.891 Personal history of nicotine dependence
CPT/HCPCS: 15823; 88302; J0131; J0690; J1100; J2250; J2405; J3010

== ENCOUNTER → 2022-02-08 | Outpatient (CLI) | payer MEDICAID, OTHER, SELFPAY | LOC: M WHC 07:52 | PROVIDERS: ATTEND Internal Medicine Hematology & Oncology | DX: M81.0 Age-related osteoporosis without current pathological fracture (principal) ==

== ENCOUNTER → 2022-07-14 | Outpatient (CLI) | payer MEDICAID | LOC: M WHC 14:30 | PROVIDERS: ATTEND Nurse Practitioner Women's Health | DX: Z85.3 Personal history of malignant neoplasm of breast (principal); Z98.82 Breast implant status ==

== ENCOUNTER → 2023-08-07 | Outpatient (CLI) | payer OTHER ==
[~2023-08-07] MED LIST changes: +CALC-364; -K-TA10TA2 PO; +NOXI1TAB PO; +POTA-165 PO
== END ==
LOC: M WHC 12:23
PROVIDERS: ATTEND Nurse Practitioner
DX: Z85.3 Personal history of malignant neoplasm of breast (principal); R92.323 Mammographic fibroglandular density, bilateral breasts; Z98.82 Breast implant status

== ENCOUNTER → 2024-01-15 | Outpatient (CLI) | payer OTHER ==
[~2024-01-15] MED LIST changes: +FENO134C20; +MULT1TAB8 PO; +ROSU20TA61; +VALS80TA
== END ==
LOC: M WHC 08:16
PROVIDERS: ATTEND Nurse Practitioner Family
DX: N64.4 Mastodynia (principal); R92.311 Mammographic fatty tissue density, right breast; Z98.82 Breast implant status

== ENCOUNTER → 2024-02-11 | Outpatient (CLI) | payer OTHER | LOC: M WHC 10:53 | PROVIDERS: ATTEND Nurse Practitioner | DX: M85.89 Other specified disorders of bone density and structure, multiple sites (principal); Z85.3 Personal history of malignant neoplasm of breast ==

== ENCOUNTER → 2024-07-18 | Outpatient (CLI) | payer OTHER ==
[~2024-07-18] MED LIST changes: -ROSU20TA61; +ROSU20TA86
== END ==
LOC: M WHC 08:47
PROVIDERS: ATTEND Internal Medicine Medical Oncology
DX: C50.911 Malignant neoplasm of unspecified site of right female breast (principal)

== ENCOUNTER → 2024-12-15 | Outpatient (CLI) | payer OTHER ==
[2024-12-15 12:01] LABS: BASO # 0.0 10^3/uL (0.0-0.2); BASO % 0.7 % (0.0-1.0); EOS # 0.1 10^3/uL (0.0-0.5); EOS % 1.2 % (0.0-3.0); LYMPH # 1.9 10^3/uL (1.5-5.0); LYMPH % 33.5 % (24.0-44.0); MONO # 0.5 10^3/uL (0.0-0.8); MONO % 8.9 % (2.0-8.0); NEUTROPHILS # 3.2 10^3/uL (1.5-8.5); NEUTROPHILS % 55.4 % (36.0-66.0); PLATELET COUNT, AUTOMATED 249 10^3/uL (150-450)
[2024-12-15 12:08] LABS: INR 0.99
[2024-12-15 12:23] LABS: IRON (FE) 70 UG/DL (50-170); PERCENT SATURATION 20.1 % (13.2-45.0)
[2024-12-15 12:24] LABS: ALT/SGPT 18 U/L (7.0-40); AST/SGOT 21 U/L (<34); CALCIUM LEVEL 9.9 MG/DL (8.3-10.6); CARBON DIOXIDE LEVEL 26 MMOL/L (20-31); CHLORIDE LEVEL 102 MMOL/L (98-107); CREATININE FOR GFR 0.64 MG/DL (0.55-1.30); GLOMERULAR FILTRATION RATE > 90.0 (>45); POTASSIUM SERUM 4.4 MMOL/L (3.5-5.1); SODIUM LEVEL 140 MMOL/L (136-145)
== END ==
LOC: M WUC 08:10
PROVIDERS: ATTEND Orthopaedic Surgery Adult Reconstructive Orthopaedic Surgery
DX: Z01.818 Encounter for other preprocedural examination (principal); M17.11 Unilateral primary osteoarthritis, right knee; M25.561 Pain in right knee

== ENCOUNTER 2025-02-09 06:33 | Day surgery (SDC) | payer OTHER ==
[~2025-02-09] VITALS: Ht 165.1 cm; Wt 99.3 kg
[~2025-02-09 06:33] MED LIST changes: +ALEN70TA82 PO; +ASPI-226 PO; +B-12100010 PO; -CALC-364; +CALC-364 PO; -FENO134C20; +FENO134C20 PO; -IBUP-1022 PO; +IBUP600T42 PO; +OXYC-517 PO; +POTA99CA2 PO; -ROSU20TA86; +ROSU20TA86 PO; +SENN1TAB96 PO; +VALS1TAB66 PO; +collagen
[2025-02-09] MEDS ORDERED: MIDAZOLAM INJ 2 MG/2 ML VIAL As Ordered ONE (07:00)
[2025-02-09] MEDS ORDERED: LR 1,000 ML IV SCH (07:00)
[2025-02-09] MEDS: CYCLOPENTOLATE 1% OPHTH SOLN 2 ML BTL OS SCH (07:40)
[2025-02-09] MEDS: FLURBIPROFEN 0.03% OPHTH SOLN 2.5 ML OS SCH (07:40)
[2025-02-09] MEDS: PHENYLEPHRINE 2.5% OPHTH SOL 2ML OS SCH (07:40)
[2025-02-09] MEDS: TETRACAINE 0.5% OPHTH SOLN 4ML OS SCH (07:40)
[2025-02-09] MEDS: LIDOCAINE 1% SDV 5 ML VIAL As Ordered ONE (08:55)
[2025-02-09] MEDS: CEFUROXIME 1 MG/0.1 ML INTRACAMERAL INJ As Ordered ONE (08:55)
[2025-02-09 09:18] VITALS: BP 133/82; TEMP 96.9; O2SAT 97
== END 2025-02-09 09:33 | disposition home or self-care (01) ==
LOC: M SDC 06:33
PROVIDERS: ATTEND Ophthalmology
DX: H25.12 Age-related nuclear cataract, left eye (principal); I10 Essential (primary) hypertension; E78.00 Pure hypercholesterolemia, unspecified; Z85.3 Personal history of malignant neoplasm of breast; Z92.21 Personal history of antineoplastic chemotherapy; Z92.3 Personal history of irradiation; F17.210 Nicotine dependence, cigarettes, uncomplicated; F17.290 Nicotine dependence, other tobacco product, uncomplicated; Z79.899 Other long term (current) drug therapy; Z79.82 Long term (current) use of aspirin
CPT/HCPCS: 66984; J0697; J2250; J3010; V2632